=== PATIENT | male | born 1980 | race Hispanic/Latino ===

== ENCOUNTER → 2021-05-04 | Day surgery (SDC) | payer OTHER ==
[2021-05-02 08:30] LABS: BASOPHILS % 0.6 % (0.0-1.0); EOSINOPHILS # (AUTO) 0.2 (0.0-0.4); EOSINOPHILS % 2.6 % (0.0-6.0); HEMATOCRIT 48.2 % (38.2-49.6); HEMOGLOBIN 15.3 g/dL (14.0-18.0); LYMPHOCYTES # (AUTO) 1.7 (1.0-3.2); LYMPHOCYTES % 24.3 % (18.0-39.1); MEAN CORPUSCULAR HEMOGLOBIN 30.6 pg (28-32); MEAN CORPUSCULAR HGB CONC 31.7 g/dL (31-35); MEAN CORPUSCULAR VOLUME 96.4 fL (81-99); MONOCYTES # (AUTO) 0.6 (0.2-0.8); MONOCYTES % 8.2 % (4.4-11.3); NEUTROPHILS # (AUTO) 4.5 (2.1-6.9); PLATELET COUNT 305 x10e3/uL (140-360); RED CELL DISTRIBUTION WIDTH 12.8 % (11.7-14.4)
[2021-05-02 08:47] LABS: INR 0.85; PROTHROMBIN TIME 11.8 seconds (11.9-14.5)
[2021-05-02 08:48] LABS: PARTIAL THROMBOPLASTIN TIME 25.4 seconds (23.8-35.5)
[2021-05-02 08:49] LABS: ANION GAP 12.5 mmol/L (8-16); CALCIUM 9.4 mg/dL (8.4-10.2); CREATININE, SERUM 1.02 mg/dL (0.72-1.25); POTASSIUM 4.5 mmol/L (3.5-5.1)
[~2021-05-04] MED LIST: ACETAMINOPHEN 1000 MG/100 ML 100 ML IV ONE; ACETAMINOPHEN 325 MG TAB PO PRN; CARISOPRODOL 350 MG TAB PO PRN; Cefazolin 1 GM in SODIUM CHLORIDE 0.9% 50ML 50 ML IV SCH; ENALAPRIL MALEATE 10 MG TAB PO SCH; FENTANYL CITRATE/PF 100MCG/2 ML INJ ONE; HYDROCODON-ACE1 EA12 PO; HYDROMORPHONE 2MG/ML 2 MG/ML ML IV PRN; INSULIN REGULAR, HUMAN 100 UNIT/1 ML SQ SCH; JARDIANCE25 MG PO; LACTATED RINGER'S 1,000 ML IV SCH; LEVEMIR100 UNIT/1 SQ; LIDOCAINE 1% W/EPINEPHRINE 20 ML VIAL ONE; MAGNESIUM/ALUMINUM/SIMETHICONE 30 ML UDC PO PRN; METFORMIN HCL 500 MG TAB PO SCH; METFORMIN HCL1000 MG PO; MORPHINE SULFATE 5 MG/ML VIAL IM PRN; NOVOLIN N100 UNIT/1 SC; NOVOLIN R100 UNIT/1 SC; NOVOLOG100 UNITS/; NPH, HUMAN INSULIN ISOPHANE 100 UNIT/1 ML 3ML VIAL SQ SCH; OMEPRAZOLE40 MG PO; ONDANSETRON HCL INJ 2MG/ML 2ML 2 MG/ML VIAL IV PRN; OXYCODONE/ACETAMINOPHEN 5-325 1 EACH TABLET PO PRN; PANTOPRAZOLE SOD 40 MG TABEC PO SCH; PROMETHAZINE HCL (IM) 25 MG/ML VIAL IM PRN; SODIUM CHLORIDE 0.9% 50ML 100 ML ONE; THROMBIN FOR SOLN 5,000 UNIT VIAL ONE; VASOTEC10 M1 PO; Vancomycin IV 1 GM VIAL ONE; ZOLPIDEM TARTRATE 5 MG TAB PO PRN
[2021-05-04 12:00] VITALS: BP 110/82
== END | disposition home or self-care (01) ==
LOC: OR 06:01
PROVIDERS: ATTEND Neurological Surgery
DX: M51.17 Intervertebral disc disorders with radiculopathy, lumbosacral region (principal); I10 Essential (primary) hypertension; E11.9 Type 2 diabetes mellitus without complications; K21.9 Gastro-esophageal reflux disease without esophagitis; Z01.810 Encounter for preprocedural cardiovascular examination; Z01.812 Encounter for preprocedural laboratory examination; Z01.818 Encounter for other preprocedural examination; Z20.822 Contact with and (suspected) exposure to COVID-19; Z79.4 Long term (current) use of insulin; Z87.891 Personal history of nicotine dependence
CPT/HCPCS: 36415 ×2; 63047; 71046; 72020; 80048; 82948; 85025; 85610; 85730; 86850; 86900; 88304; 93005; J0131; J0690; J3010; J3370; U0002

== ENCOUNTER 2021-06-01 08:00 | Outpatient (RCR) | payer OTHER ==
[~2021-06-01 08:00] MED LIST changes: -ACETAMINOPHEN 1000 MG/100 ML 100 ML IV ONE; -ACETAMINOPHEN 325 MG TAB PO PRN; -CARISOPRODOL 350 MG TAB PO PRN; -Cefazolin 1 GM in SODIUM CHLORIDE 0.9% 50ML 50 ML IV SCH; -ENALAPRIL MALEATE 10 MG TAB PO SCH; -FENTANYL CITRATE/PF 100MCG/2 ML INJ ONE; -HYDROMORPHONE 2MG/ML 2 MG/ML ML IV PRN; -INSULIN REGULAR, HUMAN 100 UNIT/1 ML SQ SCH; -LACTATED RINGER'S 1,000 ML IV SCH; -LIDOCAINE 1% W/EPINEPHRINE 20 ML VIAL ONE; -MAGNESIUM/ALUMINUM/SIMETHICONE 30 ML UDC PO PRN; -METFORMIN HCL 500 MG TAB PO SCH; -MORPHINE SULFATE 5 MG/ML VIAL IM PRN; -NPH, HUMAN INSULIN ISOPHANE 100 UNIT/1 ML 3ML VIAL SQ SCH; -ONDANSETRON HCL INJ 2MG/ML 2ML 2 MG/ML VIAL IV PRN; -OXYCODONE/ACETAMINOPHEN 5-325 1 EACH TABLET PO PRN; -PANTOPRAZOLE SOD 40 MG TABEC PO SCH; -PROMETHAZINE HCL (IM) 25 MG/ML VIAL IM PRN; -SODIUM CHLORIDE 0.9% 50ML 100 ML ONE; -THROMBIN FOR SOLN 5,000 UNIT VIAL ONE; -Vancomycin IV 1 GM VIAL ONE; -ZOLPIDEM TARTRATE 5 MG TAB PO PRN
== END 2021-06-04 ==
LOC: PT 08:00
PROVIDERS: ATTEND Neurological Surgery
DX: M51.17 Intervertebral disc disorders with radiculopathy, lumbosacral region (principal); M62.81 Muscle weakness (generalized)

== ENCOUNTER 2021-06-15 08:00 | Outpatient (RCR) | payer OTHER | END 2021-07-04 | LOC: PT 08:00 | PROVIDERS: ATTEND Neurological Surgery | DX: M51.17 Intervertebral disc disorders with radiculopathy, lumbosacral region (principal); M62.81 Muscle weakness (generalized) ==